=== PATIENT | female | born 1975 | race Caucasian/White ===

== ENCOUNTER → 2021-01-13 15:19 | Outpatient (CLI) | payer MEDICARE, MEDICAID, SELFPAY ==
--- NOTE | ~2021-01-13 | MR_ITS ---
EXAMINATION: MR thoracic spine wo con EXAM DATE: 01/13/2021 16:08 INDICATION: Thoracic back pain. TECHNIQUE: Multi-sequential, multiplanar MR images of the thoracic spine were obtained without contra st. Sagittal T1, T2, T2 fat saturation, axial T2 weighted images reviewed. There is no prior study for comparison. FINDINGS: The vertebral bodies are aligned in the AP dimension. Vertebral body and disc heights are w ell-maintained. There are no suspicious marrow signal abnormalities. The spinal cord signal intensity and intrinsic morphology is normal. Thoracic neural foramen and central canal widely patent. There i s mild thoracic facet arthropathy. Paraspinal soft tissue is unremarkable. IMPRESSION: Mild thoracic facet arthropathy. Reviewed, dictated and finalized at location B.
== END ==
PROVIDERS: Visit Provider Nurse Practitioner Family
DX: M54.6 Pain in thoracic spine (principal); M12.88 Other specific arthropathies, not elsewhere classified, other specified site
CPT/HCPCS: 72146